=== PATIENT | male | born 1975 | race Caucasian/White ===

== ENCOUNTER 2016-07-05 21:51 | Observation (INO) | payer OTHER ==
[~2016-07-05] VITALS: Ht 162.6 cm; Wt 75.0 kg
[~2016-07-05 21:51] MED LIST: BUPR150XL PO; BUSP10TA PO; PAXI40TA PO
[2016-07-05 21:55] VITALS: BP 86/52; PULSE 90; RESP 16; TEMP 97.7; O2SAT 98
[2016-07-05] MEDS ORDERED: SODIUM CHLOR 0.9% 1000 ML INJ 1,000 ML IV ONE (22:30)
[2016-07-05 22:39] VITALS: BP 110/60; PULSE 70
--- NOTE | 2016-07-05 22:40 | PD ---
HPI Chief Complaint: Syncope/Near-Syncope Time Seen by Provider: 22:14 Travel History International Travel<30 days: No Contact w/Intl Traveler<30days: No Traveled to known affect area: No History of Present Illness HPI 40yo M with PMH of substance abuse presents to the ED with episode of syncope. Pt states he was sitting in a chair, stood up and felt dizzy and sweaty. Next thing he realize, he woke up on the floor. Pt found to be hypotensive here and given IVF. Pt states he felt better lying down and no longer dizzy. Denies any fever, headache, visual changes, chest pain, sob, n/v, abdominal pain, focal weakness or numbness. States he had similar episode this past summer and had negative work up at [facility]. Denies family history of sudden cardiac . Pt is living in a half way house for substance abuse and has not had any drugs for months. PFSH Past Medical History Hx Anticoagulant Therapy: No ADHD: Yes Anxiety: Yes Depression: Yes Chemotherapy: No Cerebrovascular Accident: No Diminished Hearing: No Gastrointestinal Disorders: No Genitourinary: No Implanted Vascular Access Dvce: No Musculoskeletal: Yes (LEFT KNEE REPAIR OF TORN ACL) Neurologic: No Reproductive: No Respiratory: No Tetanus Vaccination: Unknown Influenza Vaccination: No Past Surgical History Other Surgery: Yes (L ACL REPAIR) Social History Alcohol Use: Yes (PT STATES " I DRINK SOMETIMES") Tobacco Use: Yes Substance Use: Yes (MARIJUANA, BENZOS, METHAMPHETAMINE, SPICE) Allergies-Medications (Allergen,Severity, Reaction): Coded Allergies: Flexeril (Verified Allergy, Unknown, 07/05/16) Vistaril (Verified Allergy, Unknown, 07/05/16) Reported Meds & Prescriptions Reported Meds & Active Scripts Active Reported Naltrexone (Naltrexone HCl) 50 Mg Tab 50 Mg PO DAILY Provigil (Modafinil) 200 Mg Tab 200 Mg PO DAILY Prozac (Fluoxetine HCl) 40 Mg Cap 40 Mg PO DAILY Seroquel (Quetiapine Fumarate) 50 Mg Tab 150 Mg PO HS Prazosin (Prazosin HCl) 1 Mg Cap 3 Mg PO HS Buspirone (Buspirone HCl) 10 Mg Tab 15 Mg PO BID Review of Systems Except as stated in HPI: all other systems reviewed are Neg Physical Exam Narrative GENERAL: 40yo M not in distress. SKIN: Warm and dry. HEAD: Atraumatic. Normocephalic. EYES: Pupils 3mm reactive, equal and round. EOMI. No scleral icterus. No injection or drainage. ENT: No nasal bleeding or discharge. Mucous membranes pink and moist. No hemotympanum. Mouth: Small skin came out mid lower lip. NECK: Trachea midline. No JVD. No cervical spine ttp. CARDIOVASCULAR: Regular rate and rhythm. No murmur appreciated. RESPIRATORY: No accessory muscle use. Clear to auscultation. Breath sounds equal bilaterally. GASTROINTESTINAL: Abdomen soft, non-tender, nondistended. No rebound tenderness or guarding. MUSCULOSKELETAL: No obvious deformities. No clubbing. No cyanosis. No edema. NEUROLOGICAL: Awake and alert. No obvious cranial nerve deficits. Motor grossly within normal limits. Normal speech. PSYCHIATRIC: Appropriate mood and affect; insight and judgment normal. Data Data Last Documented VS Vital Signs Date Time Temp Pulse Resp B/P Pulse Ox O2 Delivery O2 Flow Rate FiO2 07/05/16 23:49 75 16 111/55 97 Room Air 07/05/16 21:55 97.7 Orders Sodium Chlor 0.9% 1000 Ml Inj (Ns 1000 M (07/05/16 22:30) Basic Metabolic Panel (Bmp) (07/05/16 22:35) Complete Blood Count With Diff (07/05/16 22:35) Magnesium (Mg) (07/05/16 22:35) Troponin I (07/05/16 22:35) Act Partial Throm Time (Ptt) (07/05/16 22:35) Prothrombin Time / Inr (Pt) (07/05/16 22:35) Ct Brain W/O Iv Contrast(Rout) (07/05/16 22:35) Ecg Monitoring (07/05/16 22:35) Iv Access Insert/Monitor (07/05/16 22:35) Oximetry (07/05/16 22:35) Sodium Chloride 0.9% Flush (Ns Flush) (07/05/16 22:45) Orthostatic Vital Signs (07/05/16 22:35) Sodium Chlor 0.9% 1000 Ml Inj (Ns 1000 M (07/06/16 00:15) Admit Order (Ed Use Only) (07/06/16 00:29) Labs Laboratory Tests Test 07/05/16 22:40 White Blood Count 3.8 TH/MM3 Red Blood Count 5.34 MIL/MM3 Hemoglobin 15.6 GM/DL Hematocrit 43.6 % Mean Corpuscular Volume 81.8 FL Mean Corpuscular Hemoglobin 29.3 PG Mean Corpuscular Hemoglobin 35.8 % Concent Red Cell Distribution Width 12.6 % Platelet Count 223 TH/MM3 Mean Platelet Volume 7.9 FL Neutrophils (%) (Auto) 48.2 % Lymphocytes (%) (Auto) 36.3 % Monocytes (%) (Auto) 13.9 % Eosinophils (%) (Auto) 1.1 % Basophils (%) (Auto) 0.5 % Neutrophils # (Auto) 1.8 TH/MM3 Lymphocytes # (Auto) 1.4 TH/MM3 Monocytes # (Auto) 0.5 TH/MM3 Eosinophils # (Auto) 0.0 TH/MM3 Basophils # (Auto) 0.0 TH/MM3 CBC Comment DIFF FINAL Differential Comment Prothrombin Time 10.5 SEC Prothromb Time International 1.0 RATIO Ratio Activated Partial 23.9 SEC Thromboplast Time Sodium Level 129 MEQ/L Potassium Level 3.7 MEQ/L Chloride Level 88 MEQ/L Carbon Dioxide Level 27.4 MEQ/L Anion Gap 14 MEQ/L Blood Urea Nitrogen 6 MG/DL Creatinine 1.15 MG/DL Estimat Glomerular Filtration 70 ML/MIN Rate Random Glucose 117 MG/DL Calcium Level 8.6 MG/DL Magnesium Level 2.0 MG/DL Troponin I LESS THAN 0.02 NG/ML [facility] Medical Decision Making Medical Screen Exam Complete: Yes Emergency Medical Condition: Yes Interpretation(s) EKG: NSR 70bpm. Normal axis. No ST segment elevation or depression. QTc 429ms. Differential Diagnosis Vasovagal syncope vs. electrolyte abnormality Narrative Course 40yo M with syncope episode likely vasovagal. However, pt now states he was witnessed to be shaking when he fell. He states he remembers shaking but not falling. ? seizure. Labs reviewed, hyponatremia at 129. Hypochloremia at 88. Pt receiving second liter of NS IVF. Troponin negative. Magnesium normal. Glucose normal. CT brain negative. Pt's blood pressure was initially low at 86 /52 but improved with NS IVF to 111/55. Will admit for observation and further work up of syncope. Discussed with Dr. Sidhu and admitted to Dr. Wheat. Diagnosis Primary Impression: Syncope Qualified Code: R55 - Syncope, unspecified syncope type Admitting Information Admitting Physician Requests: Observation Stacie Mallory DO Jul 05, 2016 22:40
[2016-07-05] MEDS ORDERED: SODIUM CHLORIDE 0.9% FLUSH 5 ML FLUSH IVF PRN (22:45)
[2016-07-05 22:48] VITALS: RESP 16; O2SAT 95
--- NOTE | 2016-07-05 23:00 | RADRPT ---
EXAM DATE/TIME: 07/05/2016 22:52 [facility] COMPARISON: No previous studies available for comparison. INDICATIONS : Syncope. RADIATION DOSE: 43.29 CTDIvol (mGy) MEDICAL HISTORY : Diabetes mellitus type 2. SURGICAL HISTORY : None. ENCOUNTER: Initial ACUITY: 1 day PAIN SCALE: 0/10 LOCATION: cranial TECHNIQUE: Multiple contiguous axial images were obtained of the head. Using automated exposure control and adj ustment of the mA and/or kV according to patient size, radiation dose was kept as low as reasonably a chievable to obtain optimal diagnostic quality images. FINDINGS: CEREBRUM: The ventricles are normal for age. No evidence of midline shift, mass lesion, hemorrhage or acute in farction. No extra-axial fluid collections are seen. POSTERIOR FOSSA: The cerebellum and brainstem are intact. The 4th ventricle is midline. The cerebellopontine angle i s unremarkable. EXTRACRANIAL: The visualized portion of the orbits is intact. SKULL: The calvaria is intact. No evidence of skull fracture. CONCLUSION: Normal examination for a patient of this age. Barron Ash MD on July 05, 2016 at 22:58 Board Certified Radiologist. This report was verified electronically.
[2016-07-05 23:18] LABS: AUTOMATED NEUTROPHIL # 1.8 TH/MM3 (1.8-7.7); BASOPHIL % 0.5 % (0.0-2.0); EOSINOPHIL % 1.1 % (0.0-4.0); HEMATOCRIT 43.6 % (39.0-51.0); HEMO FLAGS DIFF FINAL; LYMPH % 36.3 % (9.0-44.0); LYMPHOCYTE # 1.4 TH/MM3 (1.0-4.8); MEAN CELL VOLUME 81.8 FL (80.0-100.0); MEAN CORPUSCULAR HEMOGLOBIN 29.3 PG (27.0-34.0); MEAN CORPUSCULAR HGB CONC 35.8 % (32.0-36.0); MONO % 13.9 % (0.0-8.0); NEUT % 48.2 % (16.0-70.0); PLATELET COUNT 223 TH/MM3 (150-450); RED BLOOD COUNT 5.34 MIL/MM3 (4.50-5.90); RED CELL DISTRIBUTION WIDTH 12.6 % (11.6-17.2); WHITE BLOOD COUNT 3.8 TH/MM3 (4.0-11.0)
[2016-07-05 23:35] LABS: ANION GAP 14 MEQ/L (5-15); BICARBONATE 27.4 MEQ/L (21.0-32.0); BLOOD UREA NITROGEN 6 MG/DL (7-18); CHLORIDE 88 MEQ/L (98-107); GLOMERULAR FILTRATION RATE 70 ML/MIN (>89); POTASSIUM 3.7 MEQ/L (3.5-5.1); SODIUM (NA) 129 MEQ/L (136-145)
[2016-07-05 23:38] LABS: APTT (PATIENT) 23.9 SEC (24.3-30.1); PROTHROMBIN TIME - PATIENT 10.5 SEC (9.8-11.6)
[2016-07-05 23:49] VITALS: BP 111/55; PULSE 75; RESP 16; O2SAT 97
[2016-07-06] VITALS (7 sets, daily range): BP systolic 98–118; BP diastolic 53–65; PULSE 70–87; RESP 14–19; TEMP 97.7; O2SAT 95–98
[2016-07-06] MEDS ORDERED: SODIUM CHLOR 0.9% 1000 ML INJ 1,000 ML IV ONE (00:15)
[2016-07-06] MEDS ORDERED: ACETAMINOPHEN 325 MG TAB PO PRN (01:00)
[2016-07-06] MEDS ORDERED: NALOXONE HCL 0.4 MG/ML AMP IV PRN (01:00)
[2016-07-06] MEDS ORDERED: SODIUM CHLORIDE 0.9% FLUSH 5 ML FLUSH FLUSH PRN (01:00)
[2016-07-06] MEDS ORDERED: BISACODYL 10 MG SUPP PR PRN (01:00)
[2016-07-06] MEDS: SODIUM CHLOR 0.9% 1000 ML INJ 1,000 ML IV SCH ×2 (01:17→12:54)
[2016-07-06 06:32] LABS: BICARBONATE 23.3 MEQ/L (21.0-32.0); POTASSIUM 3.8 MEQ/L (3.5-5.1)
--- NOTE | 2016-07-06 08:15 | EKG ---
Date Performed: 07/05/2016 Time Performed: 22:21:21 PTAGE: 40 years EKG: Sinus rhythm POSSIBLE LEFT ATRIAL ENLARGEMENT BORDERLINE ECG INTERPRETATION BASED ON A DEFAULT AGE OF 40 YEARS CO MPARED TO PRIOR ELECTROCARDIOGRAM, Rate has slowed. PREVIOUS TRACING : 05/06/2015 17.05 DOCTOR: Jesus Manuel Interpretating Date/Time 07/06/2016 08:13:33
[2016-07-06] MEDS ORDERED: SODIUM CHLORIDE 0.9% FLUSH 5 ML FLUSH IV PRN (08:30)
[2016-07-06] MEDS ORDERED: PROV200T11 PO (08:53)
[2016-07-06] MEDS ORDERED: NALT50TA3 PO (08:53)
[2016-07-06] MEDS ORDERED: PROZ40CA PO (08:53)
[2016-07-06] MEDS ORDERED: PRAZ1CAP PO (08:53)
[2016-07-06] MEDS ORDERED: SERO50TA PO (08:53)
--- NOTE | 2016-07-06 08:59 | HHI.HP ---
HPI Service [facility] Hospitalists Primary Care Physician Non-Staff Admission Diagnosis Syncope Chief Complaint: Pre-syncope Travel History International Travel<30 Days: No Contact w/Intl Traveler <30 Da: No Traveled to Known Affected Are: No History of Present Illness Mr. Perdomo is a 40 y/o WM with hx of polysubstance abuse/IVDA/Alcohol abuse, Hepatitis C, depression/anxiety. He was brought to the ER by [facility] after a witnessed syncopal episode. He states that he is currently living at [facility], which is a assisted house, and was meeting with his property and casualty insurance agent yesterday evening. He states that is was very anxious and upset during this conversation and started feeling dizzy/lightheaded and then when he stood up he became more dizzy and diaphoretic and the collapsed. He states that he remembers most all of what happened. He does not believe that her completely lost consciousness. He did report that he hit his head against the wall on his way to the ground but there is no noted laceration or injury. His BP was noted to be low in the ER at 86/52 and pt has been receiving IVF resuscitation with improvement in his BP. Pt appears to be somewhat dehydrated with very dry/ cracked lips. He states that he has not been eating or drinking very well lately but is eating and drinking some during the day. He denies any recent drug or alcohol use. Pt is noted to have multiple hospital admissions related to drug use and depression/anxiety. He states that he had a similar episode of syncope in November 2015 and was admitted to [facility] at that time. Review of medical records revealed his urine at that time was positive for amphetamines, Head CT was negative, he had some mild renal insufficiency at that time. He states that he was told is was vasovagal syncope at that time. Review of Systems Constitutional: COMPLAINS OF: Dizziness, DENIES: Fever, Chills, Night Sweats Eyes: DENIES: Blurred vision, Vision loss Ears, nose, mouth, throat: DENIES: Hearing loss Respiratory: DENIES: Cough, Shortness of breath Cardiovascular: DENIES: Chest pain, Palpitations, Lower Extremity Edema Gastrointestinal: DENIES: Abdominal pain, Diarrhea, Nausea, Vomiting Genitourinary: DENIES: Hematuria, Dysuria Musculoskeletal: DENIES: Joint pain, Back pain Integumentary: DENIES: Rash Neurologic: DENIES: Headache, Localized weakness Psychiatric: DENIES: Confusion Past Family Social History Past Medical History Hx of polysubstance abuse and IVDA Alcohol dependence, no alcohol for the last 3 months Depression Generalized anxiety disorder PTSD Hepatitis C Past Surgical History Left ACL repair in 1999 Oral surgery Reported Medications Naltrexone (Naltrexone HCl) 50 Mg Tab 50 Mg PO DAILY Provigil (Modafinil) 200 Mg Tab 200 Mg PO DAILY Prozac (Fluoxetine HCl) 40 Mg Cap 40 Mg PO DAILY Seroquel (Quetiapine Fumarate) 50 Mg Tab 150 Mg PO HS Prazosin (Prazosin HCl) 1 Mg Cap 3 Mg PO HS Buspirone (Buspirone HCl) 10 Mg Tab 15 Mg PO BID Allergies: Coded Allergies: Flexeril (Verified Allergy, Unknown, 07/05/16) Vistaril (Verified Allergy, Unknown, 07/05/16) Family History Mother and father with arthritis Father with diabetes Social History Pt with a hx of polysubstance abuse/IVDA and alcohol abuse. He denies any amphetamines in a year, no opiates in 1-2 years. Although review of outpt records noted that he was treated for a cellulitis in the arms from IVDA in 02/2016 Pt had started drinking alcohol heavily for a few months but none since 03/2016 Pt has been at [facility] the [facility] for the last 60 days Pts mother and brothers live locally Physical Exam Vital Signs Vital Signs Date Time Temp Pulse Resp B/P Pulse Ox O2 Delivery O2 Flow Rate FiO2 07/06/16 04:00 80 14 110/59 96 Room Air 07/06/16 00:49 78 16 111/59 96 Room Air 07/05/16 23:49 75 16 111/55 97 Room Air 07/05/16 22:48 16 95 Room Air 07/05/16 22:39 70 110/60 07/05/16 21:55 97.7 90 16 86/52 98 Room Air Physical Exam GENERAL: This is a well-nourished, well-developed patient, in no apparent distress. HEENT: Atraumatic. Normocephalic. No temporal or scalp tenderness. No scleral icterus. Airway patent. NECK: Trachea midline, supple, nontender CARDIO: Regular RESP: CTA bilaterally. No wheezes, rales, or rhonchi. ABD: +BS, soft, non-tender, nondistended. EXT: Extremities without clubbing, cyanosis, or edema. NEURO: Awake and alert. Motor and sensory grossly within normal limits. Normal speech. Laboratory Laboratory Tests Test 07/05/16 07/06/16 22:40 05:35 White Blood Count 3.8 Red Blood Count 5.34 Hemoglobin 15.6 Hematocrit 43.6 Mean Corpuscular Volume 81.8 Mean Corpuscular Hemoglobin 29.3 Mean Corpuscular Hemoglobin 35.8 Concent Red Cell Distribution Width 12.6 Platelet Count 223 Mean Platelet Volume 7.9 Neutrophils (%) (Auto) 48.2 Lymphocytes (%) (Auto) 36.3 Monocytes (%) (Auto) 13.9 Eosinophils (%) (Auto) 1.1 Basophils (%) (Auto) 0.5 Neutrophils # (Auto) 1.8 Lymphocytes # (Auto) 1.4 Monocytes # (Auto) 0.5 Eosinophils # (Auto) 0.0 Basophils # (Auto) 0.0 CBC Comment DIFF FINAL Differential Comment Prothrombin Time 10.5 Prothromb Time International 1.0 Ratio Activated Partial 23.9 Thromboplast Time Sodium Level 129 134 Potassium Level 3.7 3.8 Chloride Level 88 101 Carbon Dioxide Level 27.4 23.3 Anion Gap 14 10 Blood Urea Nitrogen 6 4 Creatinine 1.15 0.92 Estimat Glomerular Filtration 70 91 Rate Random Glucose 117 90 Calcium Level 8.6 7.8 Magnesium Level 2.0 Troponin I LESS THAN 0.02 Result Diagram: 07/05/16223907/06/16 0535 Imaging Last Impressions Head CT 07/05/162234 Signed Impressions: Service Date/Time: Tuesday, July 05, 2016 22:52 - CONCLUSION: Normal examination for a patient of this age. Barron Ash MD Septic Shock Reassessment Heart: Regular rate and rhythm Lungs: Clear Skin: Warm Peripheral Pulses: Bounding Right Radial Bounding Left Radial Bounding Right Popliteal Bounding Left Popliteal Bounding Right Dorsalis Pedis Bounding Left Dorsalis Pedis Bounding Right Posterior Tibial Bounding Left Posterior Tibial Assessment and Plan Problem List: (1) Syncope Status: Acute Plan: - Pt admitted after an episode of syncope/pre-syncope that occurred last night. - This was likely related to vasovagal syncope - Pt appears to be somewhat dehydrated on examination and states that he has not been eating or drinking as well as he normally does. - His BP was noted to be low at admission as well which has improved with IVF. - EEG was performed in the ER due to concern for possible seizure activity but pt denies any reported seizure activity at this time. Denies any loss of bowel or bladder function. No reported hx of seizure. - Pt has hx of polysubstance abuse and IVDA. Currently living in a assisted house and states that he is drug and alcohol free. UDS is negative. - Telemetry has been stable. - 2D Echo with normal EF 55-60% and mild tricuspid regurg - Carotid US was negative. - Pt was given IVF resuscitation - Encourage oral intake - Pt is stable for discharge to home, encouraged him to eat and drink more. - Pt should followup with his PCP in 1 week, call for an appt. Assessment and Plan Patient examined. Assessment and plan formulated with Saray Patel PA-C. I agree with the above. syncope. dehydration. hyponatremia. vasovagal. s/p ivf. no arrhythmia overnight on tele. no cva. no sz. no carotid dz. echo nml lvf. d/c home. Problem Qualifiers (1) Syncope: Qualified Code: R55 - Syncope, unspecified syncope type Saray Patel Jul 06, 2016 08:59 Allen Wheat MD Jul 06, 2016 16:02
[2016-07-06] MEDS ORDERED: SODIUM CHLORIDE 0.9% FLUSH 5 ML FLUSH IV SCH (09:00)
[2016-07-06] MEDS ORDERED: PARoxetine HCL 20 MG TAB PO SCH (09:00)
[2016-07-06] MEDS ORDERED: buPROPion HCL 150 MG SUSTAINED RELEASE TAB PO SCH (09:00)
[2016-07-06] MEDS ORDERED: busPIRone HCL 10 MG TAB PO SCH (09:00)
[2016-07-06] MEDS ORDERED: SODIUM CHLORIDE 0.9% FLUSH 5 ML FLUSH FLUSH SCH (09:00)
[2016-07-06] MEDS ORDERED: PILL SPLITTER OTHER PRN (09:15)
[2016-07-06] MEDS: MODAFINIL 200 MG TAB PO SCH ×2 (10:11→12:47)
[2016-07-06] MEDS: FLUoxetine HCL 20 MG CAP PO SCH ×2 (10:11→12:48)
[2016-07-06] MEDS: busPIRone HCL 10 MG TAB PO SCH ×2 (10:11→12:48)
[2016-07-06] MEDS: NALTREXONE HCL 50 MG TAB PO SCH ×2 (10:12→12:48)
--- NOTE | 2016-07-06 10:23 | RADRPT ---
EXAM DATE/TIME: 07/06/2016 09:38 [facility] COMPARISON: No previous studies available for comparison. INDICATIONS : Syncope. MEDICAL HISTORY : Diabetes. ADHD. Syncope. Substance use. SURGICAL HISTORY : Left knee ACL repair. Oral surgery. ENCOUNTER: Initial ACUITY: 1 day PAIN SCORE: 0/10 LOCATION: Bilateral neck PEAK SYSTOLIC VELOCITIES (cm/sec): ICA/CCA RATIO: Right: 0.7 Left: 0.8 ICA: Right: 86 Left: 89 CCA: Right: 123 Left: 116 ECA: Right: 126 Left: 88 VERTEBRAL: Right: 53 antegrade Left: 64 antegrade Elevated flow velocities and ICA/CCA ratios have been found to correlate with increased degrees of vessel stenosis, calculated as percentage of diameter relative to a normal segment of distal ICA/CCA FINDINGS: RIGHT CAROTID: No significant stenosis is visualized. The waveforms are within normal limits. LEFT CAROTID: No significant stenosis is visualized. The waveforms are within normal limits. VERTEBRAL ARTERIES: Antegrade flow is seen in both vertebral arteries. MISCELLANEOUS: None. CONCLUSION: Unremarkable exam with no evidence of stenosis. Tod Scruggs MD on July 06, 2016 at 10:21 Board Certified Radiologist. This report was verified electronically.
[2016-07-06 11:03] LABS: AMPHETAMINE, URINE NEG (NEG); BARBITURATES, URINE NEG (NEG); COCAINE, URINE NEG (NEG)
--- NOTE | 2016-07-06 13:07 | EC ---
Study Study Date:07/06/2016 STUDY CONCLUSIONS SUMMARY - Left ventricle: The cavity size was normal. Wall thickness was normal. Systolic function was normal. The estimated ejection fraction was in the range of 55% to 60%. Wall motion was normal; there were no regional wall motion abnormalities. - Aortic valve: Valve area: 3.9cm^2(VTI). Valve area: 3.35cm^2 (Vmax). - Tricuspid valve: Mild regurgitation. If LV function is below 40, please consider prescribing an ACEI or ARB or document rationale for non-use. PROCEDURE DATA STUDY STATUS: Elective. Procedure: Transthoracic echocardiography. Image quality was good. Scanning was performed from the parasternal, apical, and subcostal acoustic windows. Study completion: The patient tolerated the procedure well. Transthoracic echocardiography. M-mode, complete 2D, complete spectral Doppler, and color Doppler. Height: Height: 64in. Weight: Weight: 164.7lb. Body mass index: BMI: 28.3kg/m^2. Body surface area: BSA: 1.8m^2. Patient status: Inpatient. CARDIAC ANATOMY LEFT VENTRICLE: The cavity size was normal. Wall thickness was normal. Systolic function was normal. The estimated ejection fraction was in the range of 55% to 60%. Wall motion was normal; there were no regional wall motion abnormalities. AORTIC VALVE: Trileaflet; normal thickness leaflets. Doppler: Transvalvular velocity was within the normal range. There was no stenosis. No regurgitation. Valve area: 3.9cm^2(VTI). Indexed valve area: 2.17cm^2/m^2 (VTI). Valve area: 3.35cm^2 (Vmax). Indexed valve area: 1.86cm^2/m^2 (Vmax). Mean gradient: 5mm Hg (S). AORTA: Aortic root: The aortic root was poorly visualized and trivially dilated. MITRAL VALVE: Structurally normal valve. Doppler: Transvalvular velocity was within the normal range. There was no evidence for stenosis. No regurgitation. Peak gradient: 4mm Hg (D). LEFT ATRIUM: The atrium was normal in size. RIGHT VENTRICLE: The cavity size was normal. Wall thickness was normal. PULMONIC VALVE: Doppler: Transvalvular velocity was within the normal range. There was no evidence for stenosis. No regurgitation. TRICUSPID VALVE: Structurally normal valve. Doppler: Transvalvular velocity was within the normal range. Mild regurgitation. PULMONARY ARTERY: The main pulmonary artery was normal-sized. Systolic pressure was within the normal range. RIGHT ATRIUM: The atrium was normal in size. PERICARDIUM: There was no pericardial effusion. SYSTEMIC VEINS: Inferior vena cava: The vessel was normal in size. Patient weight: 164.7lb _Ejection fraction:_ 65-75% _Fractional shortening:_ 32% up to 5Kg 5-11.5Kg 11.6-22.9Kg 23-45Kg 45-57Kg Aortic Root 7-13 <17 13-22 17-27 17-27 LA diam 6-13 <23 24-38 33-47 37-40 RVID 10-17 7-15 7-15 7-18 8-17 LVIDd 12-22 <32 24-38 33-47 37-40 LVPW 2-4 3-6 5-7 6-8 7-8 IVS 2-4 3-6 5-7 6-8 7-8 BASIC MEASUREMENTS ADULT NORMAL Left ventricle LV internal dimension, ED, chordal *41.5 mm 43-52 level, PLAX LV internal dimension, ES, chordal 25.8 mm 23-38 level, PLAX Fractional shortening, chordal level, 38 % >29 PLAX LV posterior wall thickness, ED 10.3 mm IVS/LVPW ratio, ED 0.99 <1.3 Ventricular septum Septal thickness, ED 10.2 mm Aortic valve Leaflet separation 22 mm 15-26 Aorta Root diameter, ED 32 mm Left atrium Anterior-posterior dimension 26 mm Anterior-posterior dimension index 1.44 cm/m^2 <2.2 BASIC MEASUREMENTS ADULT NORMAL Aortic valve Leaflet separation 22 mm 15-26 DOPPLER MEASUREMENTS ADULT NORMAL Main pulmonary artery Pressure, S 25 mm Hg =30 Aortic valve Peak velocity, S 136 cm/s Mean velocity, S 104 cm/s VTI, S 23.6 cm Mean gradient, S 5 mm Hg Valve area, VTI 3.9 cm^2 Valve area index, VTI 2.17 cm^2/m^2 Valve area, Vmax 3.35 cm^2 Valve area index, Vmax 1.86 cm^2/m^2 Mitral valve Peak E-wave velocity 106 cm/s Peak A-wave velocity 76.5 cm/s Peak gradient, D 4 mm Hg Peak E/A ratio 1.4 Tricuspid valve Regurgitant peak velocity 235 cm/s Peak RV-RA gradient, S 22 mm Hg Maximal regurgitant velocity 235 cm/s Systemic veins Estimated CVP 5 mm Hg Right ventricle RV pressure, S 27 mm Hg <30 Pulmonic valve Peak velocity, S 70.7 cm/s LEGEND: Mean values are shown as u=mean value. Asterisk (*) aguirre values outside specified normal range. Prepared and signed by Michi Byrd [id number]
--- NOTE | 2016-07-06 15:08 | HHI.DCPOC ---
Discharge Care Plan Diagnosis: (1) Syncope Goals to Promote Your Health * To prevent worsening of your condition and complications * To maintain your health at the optimal level Directions to Meet Your Goals Take your medications as prescribed Follow your dietary instruction Follow activity as directed Keep your appointments as scheduled Take your immunizations and boosters as scheduled If your symptoms worsen call your PCP, if no PCP go to Urgent Care Center or Emergency Room Smoking is Dangerous to Your Health. Avoid second hand smoke Call the 24-hour hour crisis hotline for domestic abuse at Saray Patel Jul 06, 2016 15:08
--- NOTE | 2016-07-06 15:59 | MG ---
cc: ANASTASIA DE GUZMAN Lab No: [id number] Date: 07/06/2016 Age: 40 Sex: M Race: A 40-year-old, syncope, sitting in a chair, hypotension, BuSpar, Wellbutrin. Recording shows a symmetric 10 to 11 Hz, 60 microvolt posterior and diffuse rhythm. Recording overall is synchronous and symmetric. No epileptiform or seizure activity is noted. There were no hemisphere asymmetries. Hyperventilation was performed with good effort without change in the background. Photic stimulation was not performed. IMPRESSION This was a normal awake EEG, no evidence for focal or diffuse abnormality. If seizure is thought likely, the Wellbutrin can markedly lower the seizure threshold and that could be addressed. IMPRESSION Clinical correlation is needed. MD CORI Mcdowell/SURY /2:47 PM /3:46 PM
[2016-07-06] MEDS ORDERED: QUEtiapine FUMARATE 100 MG TAB PO SCH (21:00)
[2016-07-06] MEDS ORDERED: PRAZOSIN HCL 1 MG CAP PO SCH (21:00)
--- NOTE | 2016-07-09 14:46 | HM ---
Date Performed: 07/06/2016 Time Performed: 11:07:00 HOOKUP DATE: 07/06/16 11:07:00 AM Crista ANALYSIS START TIME: 07/06/2016 11:12:00 AM ANALYSIS END TIME: 07/07/2016 10:21:19 AM PATIENT AGE: 40 PATIENT HEIGHT: 64 PATIENT WEIGHT: 165 DRUG LIST PATIENT DIAGNOSIS: SYNCOPE TEST NARRATIVE: The patient's average heart rate was 77 BPM. Heart rates greater than 120 B PM were noted 1% of the time. No episodes of bradycardia were noted. No pauses exceeding 2.0 sec onds were noted. No ventricular ectopics were noted. No supraventricular ectopics were noted. No episodes of ST depression (defined as -1.0 mm or more) were noted in channel 1. No episodes of ST depression (defined as -1.0 mm or more) were noted in channel 2. No episodes of ST depression (defined as -1.0 mm or more) were noted in channel 3. No diary events were reported by the patie nt. TEST INTERPRETATION: Patient is monitored for 23 hours and 9 minutes. The minimum HR is 56, maxi mum HR is 129, with an average HR of 77. There were no PACs or PVCs. Conclusions: Benign holter monit or. No symptoms were reported with the recording Signed by : Tarik Cervantes
== END 2016-07-06 16:18 | disposition home or self-care (01) ==
LOC: NEPB 21:51 → NEDA 07-06 00:30 → NEDH 07-06 04:47 → NEDA 07-06 06:33
PROVIDERS: ADMIT Hospitalist; ATTEND Hospitalist
DX: R55 Syncope and collapse (principal); E86.0 Dehydration; E87.1 Hypo-osmolality and hyponatremia; E87.8 Other disorders of electrolyte and fluid balance, not elsewhere classified; F32.9 Major depressive disorder, single episode, unspecified; F41.1 Generalized anxiety disorder; F43.10 Post-traumatic stress disorder, unspecified; F90.9 Attention-deficit hyperactivity disorder, unspecified type; Z72.0 Tobacco use
CPT/HCPCS: 70450; 80048; 80307; 83735; 84484; 85025; 85610; 85730; 93005; 93225; 93226; 93306; 93880; 95819; 96360; 96361; 99285; G0378; J7030

== ENCOUNTER 2017-02-18 19:07 | Emergency (ER) | payer OTHER ==
[~2017-02-18] VITALS: Ht 160 cm; Wt 80.0 kg
[~2017-02-18 19:07] MED LIST changes: -BUPR150XL PO; +NALT50TA3 PO; -PAXI40TA PO; +PRAZ1CAP PO; +PROV200T11 PO; +PROZ40CA PO; +SERO50TA PO
[2017-02-18 19:19] VITALS: BP 130/83; PULSE 91; RESP 18; TEMP 98.8; O2SAT 98
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
[2017-02-19 07:08] VITALS: BP 110/77; TEMP 98
== END 2017-02-19 07:09 | disposition home or self-care (01) ==
LOC: NEPD 19:07
DX: F19.920 Other psychoactive substance use, unspecified with intoxication, uncomplicated (principal)
CPT/HCPCS: 99282

== ENCOUNTER 2017-03-18 18:23 | Emergency (ER) | payer OTHER ==
[~2017-03-18] VITALS: Ht 162.6 cm; Wt 76.0 kg
[~2017-03-18 18:23] MED LIST changes: -NALT50TA3 PO; -PRAZ1CAP PO; -SERO50TA PO
[2017-03-18 18:25] VITALS: BP 110/59; PULSE 107; RESP 16; TEMP 98.8; O2SAT 94
--- NOTE | 2017-03-18 19:16 | PD ---
HPI Chief Complaint: Alcohol/Drug Intoxication Time Seen by Provider: 19:09 Travel History International Travel<30 days: No Contact w/Intl Traveler<30days: No Traveled to known affect area: No History of Present Illness HPI 41-year-old male presents to the emergency department by police for alcohol intoxication. Patient states he has been drinking "a lot" today. He states he does not drink every day, but has today. He states that he lives in [place]. He states the police found him intoxicated and given option to come to the emergency department or go somewhere else. Patient denies any illicit drug use. He reports no medical complaints at this time. Patient reports he has history of anxiety/depression. He denies any headache. No fevers or chills. No chest pain or shortness of breath. No abdominal pain. No nausea, vomiting, diarrhea. PFSH Past Medical History Hx Anticoagulant Therapy: No ADHD: Yes Anxiety: Yes Depression: Yes Chemotherapy: No Cerebrovascular Accident: No Diminished Hearing: No Gastrointestinal Disorders: No Genitourinary: No Implanted Vascular Access Dvce: No Musculoskeletal: Yes (LEFT KNEE REPAIR OF TORN ACL) Neurologic: No Reproductive: No Respiratory: No Immunizations Current: Yes Tetanus Vaccination: Unknown Influenza Vaccination: No Past Surgical History Oral Surgery: Yes (WISDOM TEETH REMOVED) Other Surgery: Yes (L ACL REPAIR) Social History Alcohol Use: Yes (OCCASIONALLY, UNKNOWN AMT TODAY) Tobacco Use: No Substance Use: Yes (MARIJUANA, BENZOS, METHAMPHETAMINE, SPICE) Allergies-Medications (Allergen,Severity, Reaction): Coded Allergies: cyclobenzaprine (Unverified Allergy, Unknown, 03/18/17) hydroxyzine (Unverified Allergy, Unknown, 03/18/17) Reported Meds & Prescriptions Reported Meds & Active Scripts Active Reported Provigil (Modafinil) 200 Mg Tab 200 Mg PO DAILY Prozac (Fluoxetine HCl) 40 Mg Cap 40 Mg PO DAILY Buspirone (Buspirone HCl) 10 Mg Tab 15 Mg PO BID Review of Systems Except as stated in HPI: all other systems reviewed are Neg Physical Exam Narrative GENERAL: Well-nourished, well-developed male patient, afebrile. Patient has strong smell of alcohol on his breath. Patient is alert and oriented to person , place, time, situation. SKIN: Focused skin assessment warm/dry. HEAD: Normocephalic. EYES: No scleral icterus. No injection or drainage. NECK: Supple, trachea midline. No JVD or lymphadenopathy. CARDIOVASCULAR: Regular rate and rhythm without murmurs, gallops, or rubs. RESPIRATORY: Breath sounds equal bilaterally. No accessory muscle use. Lung sounds are clear to auscultation throughout. GASTROINTESTINAL: Abdomen soft, non-tender, nondistended. MUSCULOSKELETAL: No cyanosis, or edema. BACK: Nontender without obvious deformity. No CVA tenderness. Data Data Last Documented VS Vital Signs Date Time Temp Pulse Resp B/P (MAP) Pulse Ox O2 Delivery O2 Flow Rate FiO2 03/18/17 18:25 98.8 107 16 110/59 (76) 94 Room Air MDM Medical Decision Making Medical Screen Exam Complete: Yes Emergency Medical Condition: Yes Medical Record Reviewed: Yes Differential Diagnosis alcohol intoxication vs. alcohol abuse vs. malingering Narrative Course 41 year old male presents to the emergency department for evaluation of alcohol intoxication. He is alert and oriented and has no medical complaints today. Patient will be allowed to rest in the emergency department until he demonstrates clinical sobriety. Diagnosis Primary Impression: Alcohol intoxication Qualified Codes: F10.920 - Alcohol use, unspecified with intoxication, uncomplicated Referrals: [facility] Patient Instructions: Abuse of Alcohol (ED), Alcohol Intoxication (ED), General Instructions Additional Instructions: Follow-up at [facility] for detox. Return to the emergency department for any acute worsening of symptoms. Med/Other Pt SpecificInfo: No Change to Meds Disposition: 01 DISCHARGE HOME Condition: Stable Gem uLong Mar 18, 2017 19:16
[2017-03-19 03:00] VITALS: BP 122/73; RESP 16; O2SAT 99
[2017-03-19] MEDS ORDERED: chlordiazePOXIDE 25 MG CAP PO PRN (03:15)
[2017-03-19] MEDS ORDERED: ONDANSETRON ODT 4 MG TAB PO ONE (06:30)
== END 2017-03-19 06:39 | disposition home or self-care (01) ==
LOC: NEPD 18:23
DX: F10.129 Alcohol abuse with intoxication, unspecified (principal); F41.9 Anxiety disorder, unspecified; F32.9 Major depressive disorder, single episode, unspecified; F90.9 Attention-deficit hyperactivity disorder, unspecified type; Z79.899 Other long term (current) drug therapy; Z88.8 Allergy status to other drugs, medicaments and biological substances
CPT/HCPCS: 99283

== ENCOUNTER 2017-03-30 22:31 | Inpatient (IN) | payer OTHER ==
[~2017-03-30] VITALS: Ht 160 cm; Wt 76.7 kg
[2017-03-30 22:44] VITALS: BP 164/103; PULSE 123; RESP 24; TEMP 99.4; O2SAT 91
[2017-03-30 23:51] VITALS: BP 182/110; PULSE 120; TEMP 98.3; O2SAT 98
--- NOTE | 2017-03-30 23:55 | PD ---
HPI Chief Complaint: Hypertension Time Seen by Provider: 23:51 Travel History International Travel<30 days: No Contact w/Intl Traveler<30days: No Traveled to known affect area: No History of Present Illness HPI 41-year-old male here with overdose of Adderall and heroin with agitation and marked diaphoresis with tachycardia and hypertension. Patient admits to oral ingestion of Adderall and IV ingestion of heroine. Patient states that he has been a substance abuser in the past and has relapsed. Patient denies suicidal or homicidal ideation. Patient denies any other concerns or complaints. No chest pain or shortness of breath. No injury or fall. PFSH Past Medical History Narrative Medical Anxiety depression ADHD; no tobacco use; nursing notes reviewed Hx Anticoagulant Therapy: No ADHD: Yes Anxiety: Yes Depression: Yes Chemotherapy: No Cerebrovascular Accident: No Diminished Hearing: No Gastrointestinal Disorders: No Genitourinary: No Implanted Vascular Access Dvce: No Musculoskeletal: Yes (LEFT KNEE REPAIR OF TORN ACL) Neurologic: No Reproductive: No Respiratory: No Immunizations Current: Yes Past Surgical History Oral Surgery: Yes (WISDOM TEETH REMOVED) Other Surgery: Yes (L ACL REPAIR) Social History Alcohol Use: Yes (OCCASIONALLY, UNKNOWN AMT TODAY) Tobacco Use: No Substance Use: Yes (MARIJUANA, BENZOS, METHAMPHETAMINE, SPICE) Allergies-Medications (Allergen,Severity, Reaction): Coded Allergies: cyclobenzaprine (Unverified Allergy, Unknown, 03/18/17) hydroxyzine (Unverified Allergy, Unknown, 03/18/17) Reported Meds & Prescriptions Reported Meds & Active Scripts Active Reported Provigil (Modafinil) 200 Mg Tab 200 Mg PO DAILY Prozac (Fluoxetine HCl) 40 Mg Cap 40 Mg PO DAILY Buspirone (Buspirone HCl) 10 Mg Tab 15 Mg PO BID Review of Systems ROS Limitations: Clinical Condition, Altered Mental Status, Poor Historian Except as stated in HPI: all other systems reviewed are Neg Physical Exam Narrative Well-developed well-nourished male in no acute distress no respiratory distress with diaphoresis hypertension and tachycardia GCS 15 GENERAL: SKIN: Warm and dry. HEAD: Atraumatic. Normocephalic. EYES: Pupils equal and round. No scleral icterus. No injection or drainage. ENT: No nasal bleeding or discharge. Mucous membranes pink and moist. NECK: Trachea midline. No JVD. CARDIOVASCULAR: Regular rate and rhythm. RESPIRATORY: No accessory muscle use. Clear to auscultation. Breath sounds equal bilaterally. GASTROINTESTINAL: Abdomen soft, non-tender, nondistended. Hepatic and splenic margins not palpable. MUSCULOSKELETAL: Extremities without clubbing, cyanosis, or edema. No obvious deformities. NEUROLOGICAL: Awake and alert. No obvious cranial nerve deficits. Motor grossly within normal limits. Five out of 5 muscle strength in the arms and legs. Normal speech. PSYCHIATRIC: Appropriate mood and affect; insight and judgment normal. Data Data Last Documented VS Vital Signs Date Time Temp Pulse Resp B/P (MAP) Pulse Ox O2 Delivery O2 Flow Rate FiO2 03/31/17 06:23 50 03/31/17 06:19 100 03/31/17 06:15 122 10 146/85 (105) Nasal Cannula 8.00 03/30/17 23:51 98.3 Orders Orders Electrocardiogram (03/30/17 23:51) Complete Blood Count With Diff (03/30/17 23:51) Comprehensive Metabolic Panel (03/30/17 23:51) Prothrombin Time / Inr (Pt) (03/30/17 23:51) Act Partial Throm Time (Ptt) (03/30/17 23:51) Urinalysis - C+S If Indicated (03/30/17 23:51) Chest, Single Ap (03/30/17 23:51) Blood Glucose (03/30/17 23:51) Iv Access Insert/Monitor (03/30/17 23:51) Ecg Monitoring (03/30/17 23:51) Oximetry (03/30/17 23:51) Sodium Chloride 0.9% Flush (Ns Flush) (03/31/17 00:00) Drug Screen, Random Urine (03/30/17 23:51) Alcohol (Ethanol) (03/30/17 23:51) Salicylates (Aspirin) (03/30/17 23:51) Tylenol (Acetaminophen) (03/30/17 23:51) Troponin I (03/30/17 23:51) Lorazepam Inj (Ativan Inj) (03/31/17 00:00) Sodium Chlor 0.9% 1000 Ml Inj (Ns 1000 M (03/31/17 00:00) Magnesium (Mg) (03/30/17 23:51) Lorazepam Inj (Ativan Inj) (03/31/17 02:15) Sodium Chlor 0.9% 1000 Ml Inj (Ns 1000 M (03/31/17 03:30) Haloperidol Inj (Haldol Inj) (03/31/17 03:30) Creatine Kinase (Cpk) (03/31/17 03:21) Ct Brain W/O Iv Contrast(Rout) (03/31/17 ) Naloxone Inj (Narcan Inj) (03/31/17 05:45) Naloxone Inj (Narcan Inj) (03/31/17 05:44) Succinylcholine Inj (Quelicin Inj) (03/31/17 05:51) Etomidate Inj (Amidate Inj) (03/31/17 05:52) Etomidate Inj (Amidate Inj) (03/31/17 06:15) Succinylcholine Inj (Quelicin Inj) (03/31/17 06:15) Midazolam Inj (Versed Inj) (03/31/17 06:15) Midazolam Inj (Versed Inj) (03/31/17 06:14) CKMB (03/31/17 00:07) CKMB% (03/31/17 00:07) Propofol 1000 Mg/100 Ml Inj (Diprivan 10 (03/31/17 06:30) Neurological Rass Scale [id number],Q2HX4,Q4H (03/31/17 06:23) Admit Order (Ed Use Only) (03/31/17 ) Assistant Professor Of Criminal Justice / Telemetry [id number] (03/31/17 06:24) Activity Bed Rest (03/31/17 06:24) Notify Dr: Other (03/31/17 06:24) Labs Laboratory Tests Test 03/31/17 00:07 03/31/17 01:25 White Blood Count 13.0 TH/MM3 Red Blood Count 5.22 MIL/MM3 Hemoglobin 15.7 GM/DL Hematocrit 45.4 % Mean Corpuscular Volume 86.9 FL Mean Corpuscular Hemoglobin 30.0 PG Mean Corpuscular Hemoglobin Concent 34.5 % Red Cell Distribution Width 14.1 % Platelet Count 316 TH/MM3 Mean Platelet Volume 7.4 FL Neutrophils (%) (Auto) 65.6 % Lymphocytes (%) (Auto) 22.0 % Monocytes (%) (Auto) 11.1 % Eosinophils (%) (Auto) 0.8 % Basophils (%) (Auto) 0.5 % Neutrophils # (Auto) 8.6 TH/MM3 Lymphocytes # (Auto) 2.9 TH/MM3 Monocytes # (Auto) 1.4 TH/MM3 Eosinophils # (Auto) 0.1 TH/MM3 Basophils # (Auto) 0.1 TH/MM3 CBC Comment DIFF FINAL Differential Comment Blood Urea Nitrogen 22 MG/DL Creatinine 1.47 MG/DL Random Glucose 139 MG/DL Total Protein 8.6 GM/DL Albumin 4.4 GM/DL Calcium Level 8.7 MG/DL Magnesium Level 2.5 MG/DL Alkaline Phosphatase 119 U/L Aspartate Amino Transf (AST/SGOT) 35 U/L Alanine Aminotransferase (ALT/SGPT) 39 U/L Total Bilirubin 0.4 MG/DL Sodium Level 136 MEQ/L Potassium Level 3.5 MEQ/L Chloride Level 96 MEQ/L Carbon Dioxide Level 29.2 MEQ/L Anion Gap 11 MEQ/L Estimat Glomerular Filtration Rate 53 ML/MIN Total Creatine Kinase 514 U/L Creatine Kinase MB 6.7 NG/ML Creatine Kinase MB % 1.3 % Troponin I LESS THAN 0.02 NG/ML Salicylates Level 2.0 MG/DL Acetaminophen Level LESS THAN 2.0 MCG/ML Ethyl Alcohol Level 7 MG/DL Prothrombin Time 10.7 SEC Prothromb Time International Ratio 1.0 RATIO Activated Partial Thromboplast Time 25.9 SEC MDM Medical Decision Making Medical Screen Exam Complete: Yes Emergency Medical Condition: Yes Medical Record Reviewed: Yes Interpretation(s) UDS amphetamines and opiates; serum alcohol is significantly elevated Last Impressions Chest X-Ray 03/31/17 0000 Signed Impressions: Service Date/Time: Friday, March 31, 2017 07:45 - CONCLUSION: 1. ETT 2 cm above the alfonso. NGT in the stomach. 2. Minimal bibasilar atelectasis. Aquiles Suazo MD Chest X-Ray 03/30/17 [id number] Signed Impressions: Service Date/Time: Friday, March 31, 2017 00:45 - CONCLUSION: No acute cardiopulmonary disease identified. Michael Crockett MD CBC & BMP Diagram 03/31/17 00:07 Total Protein 8.6 H, Albumin 4.4, Calcium Level 8.7, Magnesium Level 2.5, Alkaline Phosphatase 119 H, Aspartate Amino Transf (AST/SGOT) 35, Alanine Aminotransferase (ALT/SGPT) 39, Total Bilirubin 0.4 Vital Signs Date Time Temp Pulse Resp B/P (MAP) Pulse Ox O2 Delivery O2 Flow Rate FiO2 03/31/17 06:23 50 03/31/17 06:19 100 50 03/31/17 06:15 122 10 146/85 (105) 100 Nasal Cannula 8.00 03/31/17 06:02 121 18 134/87 (103) 97 Nasal Cannula 8.00 03/31/17 03:02 129 164/84 (110) 96 03/31/17 00:00 121 95 Room Air 03/30/17 23:51 98.3 120 182/110 (134) 98 03/30/17 22:49 91 Room Air 03/30/17 22:44 99.4 123 24 164/103 (123) 91 Differential Diagnosis Polysubstance ingestion, psychosis, alcohol intoxication, metabolic encephalopathy, electrolyte disturbance, uncontrolled hypertension, substance induced mood disorder, rhabdomyolysis, neuroleptic malignant, syndrome or serotonin syndrome Narrative Course IV access obtained patient administered IV fluids and IV Ativan; patient admits to Ativan and heroin use although unknown other substances that may have been ingested prescription or otherwise along with the aforementioned chemicals. Patient has removed his IV access additional Ativan 2 mg IM administered Patient given mandatory about the exam room at risk for fall remains agitated has received IV fluid hydration blood pressure is improving and heart rate has started to decrease into a more normal range Patient given dose of Haldol and ongoing IV fluid hydration Patient remains agitated and nurse informed me that patient has noted to have some periods of desaturating to 88%-86% so placed on supplemental oxygen and has noted some periods of apnea; patient can be awakened relatively easily and appears to be startle each time without stimulation again becomes somnolent and has been witnessed by me to have periods of apnea patient also inadequately responding to hydration and sedative hypnotic medication concerning for risk of rhabdomyolysis therefore plan will be to intubate the patient admitted to ICU to clear ingestants until he can be medically cleared for evaluation by psychiatric service Critical Care Narrative Aggregate critical care time was 40 minutes. Time to perform other separately billable procedures was not included in the critical care time. My time did not include minutes spent treating any other patients simultaneously or on activities that did not directly contribute to the patient's treatment. The services I provided to this patient were to treat and/or prevent clinically significant deterioration that could result in: Respiratory failure, arrhythmia , hypertensive urgency/crisis, I provided critical care services requiring my management, as noted below: Chart data review, documentation time, medication orders and management, vital sign assessments/reviewing monitor data, ordering and reviewing lab tests, ordering and interpreting/reviewing x-rays and diagnostic studies, care of the patient and discussion of the patient with the admitting physicians. Procedures Procedure Narrative Emergently the following procedure was performed: INTUBATION: The patient was put in optimal position for the procedure. Rapid sequence intubation was initiated by me using 20 milligrams of etomidate IV and 100 milligrams of succinylcholine IV. The patient was intubated with a 8.0 cuffed endotracheal tube. Tube placement was confirmed by visualization of the tube and balloon passing through the cords, capnometry and subsequent chest x- ray. Breath sounds were equal and well aerated bilaterally postintubation. No breath sounds over stomach. Patient tolerated procedure well. Physician Communication Physician Communication Discussed briefly with Dr. Butler and accepted for admission by Dr. Wall Diagnosis Primary Impression: Substance-induced psychotic disorder with delusions Additional Impression: Encephalopathy, toxic Admitting Information Admitting Physician Requests: Admit Suha Cuellar MD Mar 30, 2017 23:55
[2017-03-31] VITALS (42 sets, daily range): BP systolic 79–164; BP diastolic 47–87; PULSE 71–129; RESP 10–24; TEMP 98.8; O2SAT 92–100
[2017-03-31] MEDS ORDERED: SODIUM CHLORIDE 0.9% FLUSH 10 ML FLUSH IVF PRN ×2
[2017-03-31 00:24] LABS: AUTOMATED NEUTROPHIL # 8.6 TH/MM3 (1.8-7.7); BASOPHIL # 0.1 TH/MM3 (0-0.2); BASOPHIL % 0.5 % (0.0-2.0); EOSINOPHIL # 0.1 TH/MM3 (0-0.4); EOSINOPHIL % 0.8 % (0.0-4.0); HEMATOCRIT 45.4 % (39.0-51.0); HEMOGLOBIN 15.7 GM/DL (13.0-17.0); LYMPHOCYTE # 2.9 TH/MM3 (1.0-4.8); MEAN CELL VOLUME 86.9 FL (80.0-100.0); MEAN CORPUSCULAR HGB CONC 34.5 % (32.0-36.0); MEAN PLATELET VOLUME 7.4 FL (7.0-11.0); MONO % 11.1 % (0.0-8.0); MONOCYTE # 1.4 TH/MM3 (0-0.9); NEUT % 65.6 % (16.0-70.0); PLATELET COUNT 316 TH/MM3 (150-450); RED BLOOD COUNT 5.22 MIL/MM3 (4.50-5.90); RED CELL DISTRIBUTION WIDTH 14.1 % (11.6-17.2)
[2017-03-31 00:52] LABS: ALBUMIN 4.4 GM/DL (3.4-5.0); ALKALINE PHOSPHATASE 119 U/L (45-117); ALT (GPT) 39 U/L (12-78); AST (GOT) 35 U/L (15-37); BICARBONATE 29.2 MEQ/L (21.0-32.0); BLOOD UREA NITROGEN 22 MG/DL (7-18); CALCIUM 8.7 MG/DL (8.5-10.1); CHLORIDE 96 MEQ/L (98-107); CREATININE 1.47 MG/DL (0.60-1.30); GLOMERULAR FILTRATION RATE 53 ML/MIN (>89); GLUCOSE,RANDOM 139 MG/DL (74-106); MAGNESIUM 2.5 MG/DL (1.5-2.5); SODIUM (NA) 136 MEQ/L (136-145); TOTAL BILIRUBIN ADULT 0.4 MG/DL (0.2-1.0); TOTAL PROTEIN 8.6 GM/DL (6.4-8.2); TROPONIN I LESS THAN 0.02 NG/ML (0.02-0.05)
[2017-03-31 00:54] LABS: ACETAMINOPHEN LESS THAN 2.0 MCG/ML (10.0-30.0)
--- NOTE | 2017-03-31 01:11 | RADRPT ---
EXAM DATE/TIME: 03/31/2017 00:45 [facility] COMPARISON: No previous studies available for comparison. INDICATIONS : Lethargic from a possible overdose. MEDICAL HISTORY : Diabetes mellitus type II. SURGICAL HISTORY : None. ENCOUNTER: Initial ACUITY: 1 day PAIN SCORE: 0/10 LOCATION: Bilateral chest FINDINGS: Single AP view of the chest. The lungs are clear. Cardiomediastinal silhouette within normal limits. No evidence of pleural effusion or pneumothorax. CONCLUSION: No acute cardiopulmonary disease identified. Michael Crockett MD on March 31, 2017 at 1:09 Board Certified Radiologist. This report was verified electronically.
[2017-03-31 01:43] LABS: PROTHROMBIN TIME - PATIENT 10.7 SEC (9.8-11.6)
[2017-03-31] MEDS ORDERED: LORazepam 2 MG/ML VIAL IV PUSH ONE ×4 (02:15)
[2017-03-31] MEDS ORDERED: SODIUM CHLOR 0.9% 1000 ML INJ 1,000 ML IV ONE ×4 (03:30)
[2017-03-31] MEDS ORDERED: HALOPERIDOL LACTATE 5 MG/ML AMP IM ONE ×2 (03:30)
[2017-03-31] MEDS ORDERED: NALOXONE HCL 0.4 MG/ML AMP ONE ×2 (05:44)
[2017-03-31] MEDS ORDERED: NALOXONE HCL 0.4 MG/ML AMP IV PUSH PRN ×2 (05:45)
[2017-03-31] MEDS ORDERED: SUCCINYLCHOLINE CHLORIDE 200 MG/10 ML VIAL ONE ×2 (05:51)
[2017-03-31] MEDS ORDERED: ETOMIDATE 20 MG/10 ML VIAL ONE ×2 (05:52)
[2017-03-31] MEDS ORDERED: MIDAZOLAM HCL 5 MG/ML VIAL (1 ML) ONE ×2 (06:14)
[2017-03-31] MEDS ORDERED: SUCCINYLCHOLINE CHLORIDE 200 MG/10 ML VIAL IV PUSH ONE ×2 (06:15)
[2017-03-31] MEDS ORDERED: MIDAZOLAM HCL 2 MG/2 ML VIAL IV PUSH ONE ×2 (06:15)
[2017-03-31] MEDS ORDERED: ETOMIDATE 20 MG/10 ML VIAL IV PUSH ONE ×2 (06:15)
[2017-03-31] MEDS: PROPOFOL 1000 MG/100 ML INJ 100 ML IV PRN ×4 (06:25→07:41)
[2017-03-31] MEDS ORDERED: POTASSIUM CHLOR 40 MEQ PREMIX 100 ML IV PRN ×4 (06:45)
[2017-03-31] MEDS ORDERED: POTASSIUM PHOSPHATE MONOBASIC 500 MG TAB PO PRN ×2 (06:45)
[2017-03-31] MEDS ORDERED: HALOPERIDOL LACTATE 5 MG/ML AMP IV PUSH PRN ×2 (06:45)
[2017-03-31] MEDS ORDERED: BISACODYL 10 MG SUPP RECTAL PRN ×2 (06:45)
[2017-03-31] MEDS ORDERED: CHLORHEXIDINE GLUCONATE 2 % 1 PACK (2 CLOTHS) TOP PRN ×2 (06:45)
[2017-03-31] MEDS ORDERED: MAGNESIUM SULFATE INJ 4 GM in SODIUM CHLORIDE 0.9% INJ 92 ML IV PRN ×4 (06:45)
[2017-03-31] MEDS ORDERED: MAGNESIUM OXIDE 400 MG TAB PO PRN ×2 (06:45)
[2017-03-31] MEDS ORDERED: DEXMEDETOMIDINE INJ 50 ML IV SCH ×2 (06:45)
[2017-03-31] MEDS ORDERED: MAGNESIUM SULFATE INJ 2 GM in SODIUM CHLORIDE 0.9% INJ 96 ML IV PRN ×4 (06:45)
[2017-03-31] MEDS ORDERED: ONDANSETRON HCL 4 MG/2 ML VIAL IV PUSH PRN ×2 (06:45)
[2017-03-31] MEDS ORDERED: POTASSIUM CHLOR 20 MEQ PREMIX 100 ML IV PRN ×4 (06:45)
[2017-03-31] MEDS ORDERED: fentaNYL DRIP 250 ML IV PRN ×2 (06:45)
[2017-03-31] MEDS ORDERED: SENNOSIDES 8.6 MG TAB PO PRN ×2 (06:45)
[2017-03-31] MEDS ORDERED: MAGNESIUM HYDROXIDE SUSP 30 ML CUP PO PRN ×2 (06:45)
[2017-03-31] MEDS ORDERED: POTASSIUM PHOSPHATE INJ 30 MMOL in SODIUM CHLOR 0.9% 250 ML INJ 250 ML IV PRN ×4 (06:45)
[2017-03-31] MEDS ORDERED: LACTULOSE SYRUP 20 GM/30 ML CUP PO PRN ×2 (06:45)
[2017-03-31] MEDS ORDERED: SODIUM PHOSPHATE INJ 30 MMOL in SODIUM CHLOR 0.9% 250 ML INJ 240 ML IV PRN ×4 (06:45)
[2017-03-31] MEDS ORDERED: PROPOFOL 1000 MG/100 ML INJ 100 ML IV PRN ×2 (06:45)
[2017-03-31] MEDS ORDERED: MISCELLANEOUS NURSING INFORMATION XX SCH ×2 (06:45)
[2017-03-31] MEDS ORDERED: RESP: ALBUTEROL 2.5 MG/IPRATROPIUM 0.5 MG NEB (PRN) INH ×2 (06:45)
[2017-03-31] MEDS ORDERED: POTASSIUM PHOSPHATE MONOBASIC 500 MG TAB PO/TUBE PRN ×2 (06:45)
[2017-03-31] MEDS: cloNIDine HCL 0.3 MG TAB PO SCH ×6 (07:00→20:38)
--- NOTE | 2017-03-31 07:06 | HHI.HP ---
[facility] Service Critical Care Medicine Primary Care Physician Unknown Admission Diagnosis polysubstance overdose; psychosis Diagnosis: Chief Complaint: altered mental status Travel History International Travel<30 Days: No Contact w/Intl Traveler <30 Da: No Traveled to Known Affected Are: No History of Present Illness This is a 41yM with history of ADHD who presents with Adderall and Heroin overdose. Due to his altered mental status, he was unsafe and was intubated for severe agitated delirium not responsive to escalating doses of ativan and haldol. he was intubated for severe agitation. No additional information is available from the patient and the remainder of the history is obtained from the medical record. Review of Systems ROS Limitations: Clinical Condition, Intoxication, Intubated, Altered Mental Status Past Family Social History Allergies: Coded Allergies: cyclobenzaprine (Unverified Allergy, Unknown, 03/18/17) hydroxyzine (Unverified Allergy, Unknown, 03/18/17) Past Medical History Anxiety depression ADHD no tobacco use Past Surgical History unknown and unobtainable secondary to the clinical condition of the patient. Reported Medications Provigil (Modafinil) 200 Mg Tab 200 Mg PO DAILY Prozac (Fluoxetine HCl) 40 Mg Cap 40 Mg PO DAILY Buspirone (Buspirone HCl) 10 Mg Tab 15 Mg PO BID Active Ordered Medications See MAR Family History unknown and unobtainable secondary to the clinical condition of the patient. Social History unknown and unobtainable secondary to the clinical condition of the patient. Physical Exam Vital Signs Vital Signs Date Time Temp Pulse Resp B/P (MAP) Pulse Ox O2 Delivery O2 Flow Rate FiO2 03/31/17 06:44 103 16 112/63 (79) 100 Nasal Cannula 8.00 03/31/17 06:23 50 03/31/17 06:19 100 50 03/31/17 06:02 121 18 134/87 (103) 97 Nasal Cannula 8.00 03/31/17 03:02 129 164/84 (110) 96 03/31/17 00:00 121 95 Room Air 03/30/17 23:51 98.3 120 182/110 (134) 98 03/30/17 22:49 91 Room Air 03/30/17 22:44 99.4 123 24 164/103 (123) 91 Physical Exam GENERAL: Middle-aged appearing male, lying in bed, intubated, sedated HEENT: Normocephalic. Atraumatic. Pupils equal, round, reactive, conjugate. Mucous membranes are moist NECK: Trachea is midline. There is no JVD. CHEST: PRVC. fio2 40%. peep 5. equal chest rise. CARDIOVASCULAR: normal rate, regular rhythm. sinus by tele. ABDOMEN: Soft, nontender, nondistended. No guarding. MUSCULOSKELETAL: Pulses 2+. No peripheral edema. NEUROLOGICAL: RASS -3. withdraws x 4. does not follow commands. Laboratory Laboratory Tests Test 03/31/17 00:07 03/31/17 01:25 White Blood Count 13.0 Red Blood Count 5.22 Hemoglobin 15.7 Hematocrit 45.4 Mean Corpuscular Volume 86.9 Mean Corpuscular Hemoglobin 30.0 Mean Corpuscular Hemoglobin Concent 34.5 Red Cell Distribution Width 14.1 Platelet Count 316 Mean Platelet Volume 7.4 Neutrophils (%) (Auto) 65.6 Lymphocytes (%) (Auto) 22.0 Monocytes (%) (Auto) 11.1 Eosinophils (%) (Auto) 0.8 Basophils (%) (Auto) 0.5 Neutrophils # (Auto) 8.6 Lymphocytes # (Auto) 2.9 Monocytes # (Auto) 1.4 Eosinophils # (Auto) 0.1 Basophils # (Auto) 0.1 CBC Comment DIFF FINAL Differential Comment Blood Urea Nitrogen 22 Creatinine 1.47 Random Glucose 139 Total Protein 8.6 Albumin 4.4 Calcium Level 8.7 Magnesium Level 2.5 Alkaline Phosphatase 119 Aspartate Amino Transf (AST/SGOT) 35 Alanine Aminotransferase (ALT/SGPT) 39 Total Bilirubin 0.4 Sodium Level 136 Potassium Level 3.5 Chloride Level 96 Carbon Dioxide Level 29.2 Anion Gap 11 Estimat Glomerular Filtration Rate 53 Total Creatine Kinase 514 Creatine Kinase MB 6.7 Creatine Kinase MB % 1.3 Troponin I LESS THAN 0.02 Salicylates Level 2.0 Acetaminophen Level LESS THAN 2.0 Ethyl Alcohol Level 7 Prothrombin Time 10.7 Prothromb Time International Ratio 1.0 Activated Partial Thromboplast Time 25.9 Result Diagram: 03/31/17603/31/176 Imaging Last Impressions Chest X-Ray 03/30/17 9354 Signed Impressions: Service Date/Time: Friday, March 31, 2017 00:45 - CONCLUSION: No acute cardiopulmonary disease identified. MD Katie Solis VTE Risk Assessment Caprini VTE Risk Assessment: Mod/High Risk (score >= 2) Caprini Risk Assessment Model Point Value = 1 Point Value = 2 Point Value = 3 Point Value = 5 Age 41-60 Minor surgery BMI > 25 kg/m2 Swollen legs Varicose veins or History of unexplained or recurrent spontaneous Oral contraceptives or hormone replacement Sepsis (< 1 month) Serious lung disease, including pneumonia (< 1 month) Abnormal pulmonary function Acute myocardial infarction Congestive heart failure (< 1 month) History of inflammatory bowel disease Medical patient at bed rest Age 61-74 Arthroscopic surgery Major open surgery (> 45 min) Laparoscopic surgery (> 45 min) Malignancy Confined to bed (> 72 hours) Immobilizing plaster cast Central venous access Age >= 75 History of VTE Family history of VTE Factor V Leiden Prothrombin [id number] Lupus anticoagulant Anticardiolipin antibodies Elevated serum homocysteine Heparin-induced thrombocytopenia Other congenital or acquired thrombophilia Stroke (< 1 month) Elective arthroplasty Hip, pelvis, or leg fracture Acute spinal cord injury (< 1 month) Prophylaxis Regimen Total Risk Factor Score Risk Level Prophylaxis Regimen 0-1 Low Early ambulation 2 Moderate Order ONE of the following: *Sequential Compression Device (SCD) *Heparin 5000 units SQ BID 3-4 Higher Order ONE of the following medications: *Heparin 5000 units SQ TID *Enoxaparin/Lovenox 40 mg SQ daily (WT < 150 kg, CrCl > 30 mL/min) *Enoxaparin/Lovenox 30 mg SQ daily (WT < 150 kg, CrCl > 10-29 mL/min) *Enoxaparin/Lovenox 30 mg SQ BID (WT < 150 kg, CrCl > 30 mL/min) AND/OR *Sequential Compression Device (SCD) 5 or more Highest Order ONE of the following medications: *Heparin 5000 units SQ TID (Preferred with Epidurals) *Enoxaparin/Lovenox 40 mg SQ daily (WT < 150 kg, CrCl > 30 mL/min) *Enoxaparin/Lovenox 30 mg SQ daily (WT < 150 kg, CrCl > 10-29 mL/min) *Enoxaparin/Lovenox 30 mg SQ BID (WT < 150 kg, CrCl > 30 mL/min) AND *Sequential Compression Device (SCD) Assessment and Plan Assessment and Plan Assessment: 41yM s/p Adderall and Heroin overdose with Toxic encephalopathy requiring intubation. Critically ill. will iv hydrate, serial CK to watch for Rhabdo, control delirium, SBT when encephalopathy resolves. Plan by systems: Neurologic: Toxic encephalopathy Adderall overdose Heroin overdose - frequent neuro checks - propofol/fentanyl for goal RASS -2 - precedex when ready to wean - seroquel 100mg po q8h - haldol 5mg iv q4h prn for breakthrough agitation - clonidine 0.3 mg po q8h - oxycodone 10mg po q4h Respiratory: Acute hypoxic and hypercarbic respiratory failure - vent bundle - hob at 30 degrees - wean fio2 for spo2 > 90% - nebs - SBT when encephalopathy resolves. Cardiovascular: Sinus tachycardia - secondary to Aderall overdose - clonidine 0.3 mg po q8h Renal: Rhabdomyolysis Acute kidney injury -- Strict I/Os - ivf resuscitation - person catheter - trend CK - kevan secondary to volume depletion FEN/GI: Acute protein calorie malnutrition- mild Hypokalemia - ICU electrolyte protocol - NPO. if unable to wean will start tube feeds - daily BMP Heme/ID: - no infectious etiology suspected - daily cbc Endocrine: Hyperglycemia of critical illness -- SSI Prophylaxis: GI Prophylaxis - no evidence based indication for GI prophylaxis at this time. DVT Prophylaxis -- SCDs Lovenox Lines: - piv - Person Dispo: Admit to ICU This patient remains critically ill with one or more organ systems which are or may become a threat to life. I have spent in excess of 44 minutes discontinuously in the care and management of this patient. This time is exclusive of procedures, and includes, but is not limited to, evaluation of the patient, review of the medical record, discussions with family, consultants, nursing staff, or respiratory therapy, and documentation in the medical record. Code Status Full Code Julien Wall MD Mar 31, 2017 07:06
[2017-03-31 07:07] LABS: BACTERIA, URINE RARE /hpf; BILIRUBIN, URINE NEG (NEG); BLOOD, URINE SMALL (NEG); GLUCOSE,URINE TRACE mg/dL (NEG); HYALINE CAST, URINE 7 /lpf (RARE); KETONE, URINE NEG (NEG); MUCUS URINE FEW /lpf (OCC); NITRITE,URINE NEG (NEG); PH, URINE 5.5 (5.0-8.5); URINE COLOR YELLOW (YELLW/STRAW); URINE LEUKOCYTE ESTERASE NEG (NEG)
[2017-03-31] MEDS: CHLORHEXIDINE 0.12% (ORAL KIT) 15 ML CUP MT SCH ×4 (07:48→19:27)
[2017-03-31] MEDS: oxyCODONE HCL ORAL CONC 5 MG/0.25 ML SYRINGE PO SCH ×6 (07:48→16:00)
--- NOTE | 2017-03-31 08:06 | RADRPT ---
EXAM DATE/TIME: 03/31/2017 07:45 [facility] COMPARISON: CHEST SINGLE AP, March 31, 2017, 0:45. INDICATIONS : Post intubation MEDICAL HISTORY : Diabetes mellitus type II. SURGICAL HISTORY : None. ENCOUNTER: Initial ACUITY: 1 day PAIN SCORE: 0/10 LOCATION: Bilateral chest FINDINGS: ETT is approximately 2 cm above the alfonso. NGT is in the stomach. Minimal bibasilar airspace disease , likely atelectasis. Cardiomediastinal contours are within normal limits. Remainder of exam is uncha nged. CONCLUSION: 1. ETT 2 cm above the alfonso. NGT in the stomach. 2. Minimal bibasilar atelectasis. Aquiles Suazo MD on March 31, 2017 at 8:03 Board Certified Radiologist. This report was verified electronically.
[2017-03-31] MEDS: ENOXAPARIN SODIUM 40 MG/0.4 ML SYRINGE SQ SCH ×2 (08:13)
[2017-03-31] MEDS: DOCUSATE SODIUM 50 MG/SENNA 8.6 MG TAB PO SCH ×4 (09:10→20:37)
[2017-03-31] MEDS: RESP: ALBUTEROL 2.5 MG/IPRATROPIUM 0.5 MG NEB (SCH) INH ×4 (09:40→16:20)
[2017-03-31] MEDS ORDERED: DEXMEDETOMIDINE INJ 200 MCG in SODIUM CHLORIDE 0.9% INJ 50 ML IV SCH ×4 (09:45)
--- NOTE | 2017-03-31 10:54 | RADRPT ---
EXAM DATE/TIME: 03/31/2017 10:17 [facility] COMPARISON: CT BRAIN W/O CONTRAST, July 05, 2016, 22:52. INDICATIONS : Altered mental status. RADIATION DOSE: 56.35 CTDIvol (mGy) MEDICAL HISTORY : Non-responsive. SURGICAL HISTORY : Non-responsive. ENCOUNTER: Initial ACUITY: 1 day PAIN SCALE: Non-responsive LOCATION: cranial TECHNIQUE: Multiple contiguous axial images were obtained of the head. Using automated exposure control and adj ustment of the mA and/or kV according to patient size, radiation dose was kept as low as reasonably a chievable to obtain optimal diagnostic quality images. DICOM format image data is available electro nically for review and comparison. FINDINGS: CEREBRUM: The ventricles are normal for age. No evidence of midline shift, mass lesion, hemorrhage or acute in farction. No extra-axial fluid collections are seen. POSTERIOR FOSSA: The cerebellum and brainstem are intact. The 4th ventricle is midline. The cerebellopontine angle i s unremarkable. EXTRACRANIAL: The visualized portion of the orbits is intact. SKULL: The calvaria is intact. No evidence of skull fracture. CONCLUSION: 1. No acute intracranial abnormality. Aquiles Suazo MD on March 31, 2017 at 10:51 Board Certified Radiologist. This report was verified electronically.
[2017-03-31] MEDS ORDERED: QUEtiapine FUMARATE 100 MG TAB PO SCH ×2 (14:00)
[2017-04-01] VITALS (21 sets, daily range): BP systolic 99–129; BP diastolic 55–78; PULSE 76–104; RESP 13–21; TEMP 97.6–98.5; O2SAT 93–97
[2017-04-01] MEDS ORDERED: CHLORHEXIDINE GLUCONATE 2 % 1 PACK (2 CLOTHS) TOP SCH ×2 (04:00)
[2017-04-01] MEDS: cloNIDine HCL 0.3 MG TAB PO SCH ×2 (04:57)
[2017-04-01 06:09] LABS: HEMATOCRIT 34.8 % (39.0-51.0); HEMOGLOBIN 12.1 GM/DL (13.0-17.0); MEAN CELL VOLUME 88.2 FL (80.0-100.0); MEAN CORPUSCULAR HEMOGLOBIN 30.6 PG (27.0-34.0); MEAN CORPUSCULAR HGB CONC 34.7 % (32.0-36.0); PLATELET COUNT 165 TH/MM3 (150-450); RED BLOOD COUNT 3.95 MIL/MM3 (4.50-5.90); RED CELL DISTRIBUTION WIDTH 14.4 % (11.6-17.2); WHITE BLOOD COUNT 6.3 TH/MM3 (4.0-11.0)
[2017-04-01 06:41] LABS: BICARBONATE 25.5 MEQ/L (21.0-32.0); CALCIUM 7.9 MG/DL (8.5-10.1); CREATININE 0.9 MG/DL (0.60-1.30)
[2017-04-01] MEDS: CHLORHEXIDINE 0.12% (ORAL KIT) 15 ML CUP MT SCH ×2 (08:00)
--- NOTE | 2017-04-01 08:26 | HHI.PR ---
Subjective Remarks no physical complaints. asking to go home. denies suicidal intent. accidental overdose of medications. was not Horvath acted in ED. Objective Vitals nad. oriented heart reg lungcta abd s/nt ext no edema Vital Signs Date Time Temp Pulse Resp B/P (MAP) Pulse Ox O2 Delivery O2 Flow Rate FiO2 04/01/17 06:00 84 04/01/17 06:00 87 21 112/69 (83) 95 04/01/17 05:30 85 16 96 04/01/17 05:00 85 17 117/74 (88) 95 04/01/17 04:30 83 17 95 04/01/17 04:00 81 04/01/17 04:00 84 17 113/72 (86) 94 04/01/17 04:00 97.6 79 16 113/72 (86) 96 04/01/17 03:30 83 13 95 04/01/17 03:00 85 16 108/68 (81) 95 04/01/17 02:30 87 15 95 04/01/17 02:00 86 14 109/55 (73) 94 04/01/17 02:00 83 04/01/17 01:30 86 14 99/59 (72) 95 04/01/17 01:00 96 17 100/60 (73) 93 04/01/17 00:30 99 18 108/63 (78) 95 04/01/17 00:00 98 04/01/17 00:00 98 19 106/65 (79) 96 04/01/17 00:00 98.0 104 16 106/65 (79) 95 03/31/17 23:30 92 21 106/63 (77) 96 03/31/17 23:00 89 19 106/62 (77) 99 03/31/17 22:00 88 03/31/17 20:00 98.8 83 15 98/57 (71) 98 03/31/17 20:00 Room Air 03/31/17 20:00 89 03/31/17 19:57 97 03/31/17 19:37 90 18 89/47 (61) 98 03/31/17 19:30 88 12 94 03/31/17 19:15 90 12 92 03/31/17 19:00 90 15 87/52 (64) 95 03/31/17 18:48 94 21 84/49 (61) 96 03/31/17 18:47 91 13 79/47 (58) 92 03/31/17 18:45 89 16 94 03/31/17 18:30 92 24 80/51 (61) 93 03/31/17 18:15 93 15 93 03/31/17 18:00 92 03/31/17 18:00 92 13 86/49 (61) 95 03/31/17 17:45 94 14 95 03/31/17 17:40 96 21 03/31/17 17:30 87 12 93/51 (65) 100 03/31/17 17:15 100 Nasal Cannula 4.00 03/31/17 17:15 85 18 100 03/31/17 17:00 90 18 91/56 (68) 100 03/31/17 17:00 90 03/31/17 16:45 81 23 100 03/31/17 16:35 86 20 82/49 (60) 100 03/31/17 16:35 86 03/31/17 16:34 89 03/31/17 16:34 89 17 81/52 (62) 95 03/31/17 16:30 76 03/31/17 16:30 76 18 83/53 (63) 100 03/31/17 16:20 100 40 03/31/17 16:15 71 18 100 03/31/17 16:06 71 18 81/51 (61) 100 03/31/17 16:06 71 03/31/17 16:00 40 03/31/17 11:52 03/31/17 11:45 100 40 03/31/17 10:30 90 20 130/80 (97) 100 Ventilator 03/31/17 10:20 100 100 03/31/17 10:00 90 17 108/48 (68) 99 Ventilator 50 03/31/17 09:40 100 50 03/31/17 09:00 100 18 135/60 (85) 100 Ventilator 50 Result Diagram: 04/01/17 0418 04/01/17417 A/P Problem List: (1) Intoxication by drug ICD Codes: F19.929 - Other psychoactive substance use, unspecified with intoxication, unspecified Status: Acute Plan: 1. Overdose on heroin. denies adderal on day of admission. UDS positive for opiates and amphetamines. Required intubation for airway protection/toxic encephalopathy. Pt denies suicidal ideations and was not Horvath acted. Hx of polysubstance abuse and IVDA past hx of etoh dep. Depression Generalized anxiety disorder PTSD Hepatitis C Plan pt has been in drug/etoh programs in past including [facility], [facility], and admitted to our psych unit in past. He currently denies any physical complaint and wants to go home. He was not Horvath Acted. He refused any consultation with psychiatry here today but agreed to call and f/u with [facility]cp addition/behavioral dept. d/c home. Allen Wheat MD Apr 01, 2017 08:26
[2017-04-01] MEDS ORDERED: SERO50TA PO ×2 (08:30)
--- NOTE | 2017-04-01 08:31 | HHI.DCPOC ---
Discharge Care Plan Diagnosis: (1) Intoxication by drug (2) Encephalopathy, toxic Goals to Promote Your Health * To prevent worsening of your condition and complications * To maintain your health at the optimal level Directions to Meet Your Goals Take your medications as prescribed Follow your dietary instruction Follow activity as directed Keep your appointments as scheduled Take your immunizations and boosters as scheduled If your symptoms worsen call your PCP, if no PCP go to Urgent Care Center or Emergency Room Smoking is Dangerous to Your Health. Avoid second hand smoke Call the 24-hour hour crisis hotline for domestic abuse at Allen Wheat MD Apr 01, 2017 08:31
--- NOTE | 2017-04-01 08:31 | HHI.DCPOC ---
Discharge Care Plan Diagnosis: (1) Intoxication by drug (2) Encephalopathy, toxic Goals to Promote Your Health * To prevent worsening of your condition and complications * To maintain your health at the optimal level Directions to Meet Your Goals Take your medications as prescribed Follow your dietary instruction Follow activity as directed Keep your appointments as scheduled Take your immunizations and boosters as scheduled If your symptoms worsen call your PCP, if no PCP go to Urgent Care Center or Emergency Room Smoking is Dangerous to Your Health. Avoid second hand smoke Call the 24-hour hour crisis hotline for domestic abuse at Allen Wheat MD Apr 01, 2017 08:31
--- NOTE | 2017-04-01 08:31 | HHI.DCPOC ---
Discharge Care Plan Diagnosis: (1) Intoxication by drug (2) Encephalopathy, toxic Goals to Promote Your Health * To prevent worsening of your condition and complications * To maintain your health at the optimal level Directions to Meet Your Goals Take your medications as prescribed Follow your dietary instruction Follow activity as directed Keep your appointments as scheduled Take your immunizations and boosters as scheduled If your symptoms worsen call your PCP, if no PCP go to Urgent Care Center or Emergency Room Smoking is Dangerous to Your Health. Avoid second hand smoke Call the 24-hour hour crisis hotline for domestic abuse at Allen Wheat MD Apr 01, 2017 08:31
[2017-04-01] MEDS ORDERED: busPIRone HCL 10 MG TAB PO SCH ×2 (09:00)
--- NOTE | 2017-04-01 09:05 | EKG ---
Date Performed: 03/30/2017 Time Performed: 22:56:49 PTAGE: 41 years EKG: SINUS TACHYCARDIA Compared to prior tracing no significant change ABNORMAL RHYTHM ECG PREVIOUS TRACING : 07/05/2016 22.21 DOCTOR: Handy Sosa Interpretating Date/Time 04/01/2017 09:04:50
[2017-04-01] MEDS: DOCUSATE SODIUM 50 MG/SENNA 8.6 MG TAB PO SCH ×2 (09:53)
[2017-04-01] MEDS: ENOXAPARIN SODIUM 40 MG/0.4 ML SYRINGE SQ SCH ×2 (09:53)
== END 2017-04-01 13:50 | disposition home or self-care (01) | DRG 917 ==
LOC: NEPC 22:31 → NEDA 03-31 06:31 → HIMW 03-31 11:40
PROVIDERS: ADMIT Internal Medicine Critical Care Medicine; ATTEND Internal Medicine Critical Care Medicine
PROC: 0BH17EZ Insertion of Endotracheal Airway into Trachea, Via Natural or Artificial Opening (ICD-10-PCS; principal; 2017-03-30)
PROC: 5A1935Z Respiratory Ventilation, Less than 24 Consecutive Hours (ICD-10-PCS; 2017-03-30)
DX: T40.1X1A Poisoning by heroin, accidental (unintentional), initial encounter (principal); G92 Toxic encephalopathy; J96.01 Acute respiratory failure with hypoxia; J96.02 Acute respiratory failure with hypercapnia; N17.9 Acute kidney failure, unspecified; M62.82 Rhabdomyolysis; E44.1 Mild protein-calorie malnutrition; F32.9 Major depressive disorder, single episode, unspecified; F41.9 Anxiety disorder, unspecified; T43.621A Poisoning by amphetamines, accidental (unintentional), initial encounter; F90.9 Attention-deficit hyperactivity disorder, unspecified type; E87.6 Hypokalemia; R73.9 Hyperglycemia, unspecified; F41.1 Generalized anxiety disorder; F43.10 Post-traumatic stress disorder, unspecified
CPT/HCPCS: 31500; 36600; 70450; 71010; 80048; 80053; 80307; 81001; 82550; 82552; 82805; 83735; 84484; 85025; 85027; 85610; 85730; 93005; 94002; 94640; 94664; 94667; 96372; 96374; 96375; 96376; J0330; J1630; J1650; J2060; J2250; J2310; J7030